=== PATIENT | female | born 1975 | race Hispanic/Latino ===

== ENCOUNTER 2021-11-30 14:08 | Emergency (ER) | payer OTHER ==
[2021-11-30] MEDS ORDERED: IBUPROFEN 400 MG TAB ONE (14:29)
[2021-11-30] MEDS ORDERED: HYDROCODONE/APAP 7.5/325 MG TAB ONE (14:30)
[2021-11-30] MEDS ORDERED: LIDOCAINE 1% MPF 5 ML VIAL ONE (15:50)
[2021-11-30] MEDS ORDERED: BUPIVACAINE 0.5% PF 10 ML VIAL ONE (15:50)
[2021-11-30] MEDS ORDERED: LIDOCAINE 1% W/EPI 1:100,000 MDV 20 ML VIAL ONE (15:52)
--- NOTE | 2021-11-30 16:14 | EDPHYS ---
Physician Documentation [facility] Name: Jessi Guzman Age: 45 yrs Sex: Female : 1975 Arrival Date: 11/30/2021 Time: 14:11 Bed DIS2 Private MD: ED Physician Naina Moser HPI: 11/30 14:19 This 45 yrs old Female presents to ER via Ambulatory with complaints of Hand cp Lac. 14:19 The patient or guardian reports a laceration. cp 14:19 The complaints affect the hyperthenar eminence of left hand. cp 14:19 Context: resulted from using supervisor mattress and boxsprings to clean boots. Onset: The symptoms/episode cp began/occurred just prior to arrival. Associated signs and symptoms: Pertinent negatives: cyanosis distally, decreased sensation distally. Historical: - Allergies: 14:17 No Known Allergies; ss - Home Meds: 14:17 None [Active]; ss - PMHx: 14:17 None; ss - Immunization history:: Last tetanus immunization: up to date. - Social history:: Smoking status: Patient denies any tobacco usage or history of. ROS: 14:25 Skin: Positive for laceration(s), of the hyperthenar eminence of left hand. cp 14:25 Constitutional: Negative for body aches, chills, fever. cp 14:25 Neck: Negative for pain with movement, pain at rest, stiffness. 14:25 Cardiovascular: Negative for chest pain, palpitations. 14:25 Respiratory: Negative for cough, shortness of breath, wheezing. 14:25 Abdomen/GI: Negative for abdominal pain, nausea, vomiting, and diarrhea. 14:25 Back: Negative for pain at rest, pain with movement. 14:25 Neuro: Negative for numbness. 14:25 All other systems are negative. Exam: 14:30 Constitutional: The patient appears in no acute distress, alert, awake, non-toxic, well cp developed, well nourished. 14:30 Musculoskeletal/extremity: Extremities: grossly normal except: noted in the hyperthenar cp eminence of left hand: laceration, tenderness, mild swelling, minimal bleeding, ROM: limited active range of motion due to pain, in the left hand, Perfusion: the extremity is normally perfused throughout, the left hand Sensation intact. Vital Signs: 14:15 BP 125 / 96; Pulse 84; Resp 24; Temp 98.0(TE); Pulse Ox 100% on R/A; Weight 79.83 kg; ss Height 5 ft. 2 in. (157.48 cm); Pain 10/10; 14:15 Body Mass Index 32.19 (79.83 kg, 157.48 cm) ss Laceration: 16:10 Wound Repair of 3cm ( 1.2in ) subcutaneous laceration to hyperthenar eminence of left cp hand. Linear shaped.. Distal neuro/vascular/tendon intact. Anesthesia: Wound infiltrated with 3 mls of Lido/Marcaine. Wound prep: Moderate cleansing by me, Wound irrigation by me. Skin closed with 3 4-0 Prolene using interrupted sutures and sterile technique. Dressed with 4x4's. Patient tolerated well. MDM: 14:30 Differential diagnosis: open fracture, simple laceration, tendon injury, foreign body. cp 15:43 Patient medically screened. cp 16:12 Data reviewed: vital signs, nurses notes, radiologic studies, plain films. Test cp interpretation: by ED physician or midlevel provider: xrays of right hand negative for fracture and/or foreign body. Counseling: I had a detailed discussion with the patient and/or guardian regarding: the historical points, exam findings, and any diagnostic results supporting the discharge/admit diagnosis, radiology results, the need for outpatient follow up, a family practitioner, to return to the emergency department if symptoms worsen or persist or if there are any questions or concerns that arise at home. Response to treatment: the patient's symptoms have markedly improved after treatment, and as a result, I will discharge patient. 11/30 14:18 Order name: XRAY Hand LEFT 3 View cp 11/30 15:45 Order name: Dressing - Wound; Complete Time: 16:18 cp 11/30 15:45 Order name: Gloves, Sterile; Complete Time: 16:16 cp 11/30 15:45 Order name: Setup Suture Tray; Complete Time: 16:18 cp 11/30 16:11 Order name: Wrist Splint: right; Complete Time: 16:38 cp 11/30 16:11 Order name: Wound dressing; Complete Time: 16:38 cp Administered Medications: 14:26 Drug: Hydrocodone-Acetaminophen (7.5 mg-325 mg) 1 tabs Route: PO; 16:18 Follow up: Response: No adverse reaction 14:26 Drug: Ibuprofen 800 mg Route: PO; 16:18 Follow up: Response: No adverse reaction 16:00 Drug: Bupivacaine (0.5 %) 5 ml {Note: administered by PA. Juan} Volume: 10 ml; Route: ss Infiltration; 16:00 Drug: Lidocaine-Epinephrine -1%: (1:100,000) 5 ml {Note: Administered by abhi Combs} Volume: 20 ml; Route: Infiltration; Disposition Summary: 11/30/21 16:13 Discharge Ordered Location: Home cp Problem: new cp Symptoms: have improved cp Condition: Stable cp Diagnosis - Laceration without foreign body of left hand, initial encounter cp Followup: cp - With: Private Physician - When: 10 - 14 days - Reason: Staple/Suture removal Discharge Instructions: - Discharge Summary Sheet cp - Laceration Care, Adult cp Forms: - Medication Reconciliation Form cp - Thank You Letter cp - Work release form ss - Antibiotic Education cp - Prescription Opioid Use cp Prescriptions: - Naprosyn 500 mg Oral Tablet - take 1 tablet by ORAL route 2 times per day take with food; 20 tablet; Refills: cp 0, Product Selection Permitted Signatures: Dispatcher [employer] Oumou Uribe RN RN ss Page, Corey, PA PA cp Corrections: (The following items were deleted from the chart) 16:45 16:13 Laceration without foreign body of right hand, initial encounter cp cp 12/01 13:55 11/30 14:19 The patient or guardian reports a laceration, clean, cp cp
--- NOTE | 2021-11-30 16:14 | ER ---
Nurse's Notes [facility] Name: Jessi Guzman Age: 45 yrs Sex: Female : 1975 Arrival Date: 11/30/2021 Time: 14:11 Bed DIS2 Private MD: Diagnosis: Laceration without foreign body of left hand, initial encounter Presentation: 11/30 14:15 Chief complaint: Patient states: "I was cleaning my boots with a box spring upholsterer and I cut ss my hand. I don't know if the blade is still in there or not." No active bleeding noted. approximate 0.5- 1 inch laceration noted to L palm of hand. Coronavirus screen: Client denies travel out of the [place] in the last 14 days. Ebola Screen: Patient denies exposure to infectious person. Patient denies travel to an Ebola-affected area in the 21 days before illness onset. Initial Sepsis Screen: Does the patient meet any 2 criteria? No. Patient's initial sepsis screen is negative. Does the patient have a suspected source of infection? No. Patient's initial sepsis screen is negative. Risk Assessment: Do you want to hurt yourself or someone else? Patient reports no desire to harm self or others. Onset of symptoms was November 30, 2021. 14:15 Method Of Arrival: Ambulatory ss 14:15 Acuity: PHAM 4 ss Historical: - Allergies: 14:17 No Known Allergies; ss - Home Meds: 14:17 None [Active]; ss - PMHx: 14:17 None; ss - Immunization history:: Last tetanus immunization: up to date. - Social history:: Smoking status: Patient denies any tobacco usage or history of. Screenin:21 Abuse screen: Denies threats or abuse. Denies injuries from another. Nutritional ss screening: No deficits noted. Tuberculosis screening: Never had TB. Fall Risk None identified. Assessment: 14:21 Reassessment: wet to dry dressing placed on L hand. Vital Signs: 14:15 BP 125 / 96; Pulse 84; Resp 24; Temp 98.0(TE); Pulse Ox 100% on R/A; Weight 79.83 kg; ss Height 5 ft. 2 in. (157.48 cm); Pain 10/10; 14:15 Body Mass Index 32.19 (79.83 kg, 157.48 cm) ED Course: 14:11 Patient arrived in ED. ds1 14:15 Juan Snyder PA is PHCP. cp 14:15 Naina Moser MD is Attending Physician. cp 14:17 Triage completed. ss 14:17 Arm band placed on right wrist. ss 14:21 Patient has correct armband on for positive identification. ss 16:14 XRAY Hand LEFT 3 View In Process Unspecified. EDMS 16:38 Oumou Roque, MANNY is Primary Nurse. ss 16:42 Assist provider with laceration repair on left hand that was 2.5 cm. or less using sutures. Set up tray. Performed by Juan STOKES Dressed with 4X4s, Anahi, Neosporin, Patient tolerated well. Patient did not have IV access during this emergency room visit. 16:48 Velcro wrist splint applied to left wrist. ss Administered Medications: 14:26 Drug: Hydrocodone-Acetaminophen (7.5 mg-325 mg) 1 tabs Route: PO; ss 16:18 Follow up: Response: No adverse reaction ss 14:26 Drug: Ibuprofen 800 mg Route: PO; ss 16:18 Follow up: Response: No adverse reaction ss 16:00 Drug: Bupivacaine (0.5 %) 5 ml {Note: administered by PA. Juan} Volume: 10 ml; Route: ss Infiltration; 16:00 Drug: Lidocaine-Epinephrine -1%: (1:100,000) 5 ml {Note: Administered by abhi Combs.} Volume: 20 ml; Route: Infiltration; Outcome: 16:13 Discharge ordered by MD. cp 16:42 Discharged to home ambulatory, with family. ss 16:42 Condition: good 16:42 Instructed on discharge instructions, follow up and referral plans. Demonstrated understanding of instructions, follow-up care, medications, Prescriptions given X 1. 16:48 Patient left the ED. Signatures: Dispatcher [employer] [facility] GaleanaSchumacheri ds1 Oumou Roque RN RN Juan Miller PA PA cp
[2021-11-30 16:53] VITALS: BP 125/96; TEMP 98; O2SAT 100
--- NOTE | 2021-11-30 16:53 | RAD REPORT ---
EXAM DESCRIPTION: RAD - Hand Left 3 View - 11/30/2021 4:12 pm CLINICAL HISTORY: PAIN, laceration, possible foreign body COMPARISON: None. FINDINGS: No fracture, dislocation or periosteal reaction noted. No bone or joint abnormality. Nelson ging is in place. No soft tissue foreign body. IMPRESSION: No foreign body. No acute bone finding.
== END 2021-11-30 16:48 | disposition home or self-care (01) ==
LOC: ER 14:08
PROC: 0JQK0ZZ Repair Left Hand Subcutaneous Tissue and Fascia, Open Approach (ICD-10-PCS; principal; 2021-11-30)
DX: S61.412A Laceration without foreign body of left hand, initial encounter (principal); W27.8XXA Contact with other nonpowered hand tool, initial encounter
CPT/HCPCS: 99284

== ENCOUNTER 2021-12-15 15:03 | Emergency (ER) | payer OTHER ==
--- NOTE | 2021-12-15 15:24 | EDPHYS ---
Physician Documentation [facility] Name: Jessi Guzman Age: 46 yrs Sex: Female : 1975 Arrival Date: 12/15/2021 Time: 15:04 Bed Waiting Private MD: Juan Vernon HPI: 12/15 15:20 This 46 yrs old Female presents to ER via Ambulatory with complaints of Suture taz Removal. 15:20 The patient has sutures on the left hand. Previous treatment: The patient was initially taz treated 15 day(s) ago. Sutures/miladys progress: The patient has no c/o's. The wound is well-healing with no redness, swelling, discharge, or dehiscence reported. The patient has not experienced similar symptoms in the past. Historical: - Allergies: 15:13 No Known Allergies; ss - Immunization history:: Adult Immunizations up to date. - Social history:: Smoking status: Patient denies any tobacco usage or history of. - Family history:: not pertinent. ROS: 15:20 Constitutional: Negative for fever, chills, and weight loss, Eyes: Negative for injury, taz pain, redness, and discharge, ENT: Negative for injury, pain, and discharge, Neck: Negative for injury, pain, and swelling, Cardiovascular: Negative for chest pain, palpitations, and edema, Respiratory: Negative for shortness of breath, cough, wheezing, and pleuritic chest pain, Abdomen/GI: Negative for abdominal pain, nausea, vomiting, diarrhea, and constipation, Back: Negative for injury and pain, : Negative for injury, bleeding, discharge, and swelling, Skin: Negative for injury, rash, and discoloration, Neuro: Negative for headache, weakness, numbness, tingling, and seizure, Psych: Negative for depression, anxiety, suicide ideation, homicidal ideation, and hallucinations, Allergy/Immunology: Negative for hives, rash, and allergies, Endocrine: Negative for neck swelling, polydipsia, polyuria, polyphagia, and marked weight changes, Hematologic/Lymphatic: Negative for swollen nodes, abnormal bleeding, and unusual bruising. 15:20 MS/extremity: Positive for pain, of the left hand. Exam: 15:20 Constitutional: This is a well developed, well nourished patient who is awake, alert, taz and in no acute distress. Head/Face: Normocephalic, atraumatic. Eyes: Pupils equal round and reactive to light, extra-ocular motions intact. Lids and lashes normal. Conjunctiva and sclera are non-icteric and not injected. Cornea within normal limits. Periorbital areas with no swelling, redness, or edema. ENT: Nares patent. No nasal discharge, no septal abnormalities noted. Tympanic membranes are normal and external auditory canals are clear. Oropharynx with no redness, swelling, or masses, exudates, or evidence of obstruction, uvula midline. Mucous membranes moist. Neck: Trachea midline, no thyromegaly or masses palpated, and no cervical lymphadenopathy. Supple, full range of motion without nuchal rigidity, or vertebral point tenderness. No Meningismus. Chest/axilla: Normal chest wall appearance and motion. Nontender with no deformity. No lesions are appreciated. Cardiovascular: Regular rate and rhythm with a normal S1 and S2. No gallops, murmurs, or rubs. Normal PMI, no JVD. No pulse deficits. Respiratory: Lungs have equal breath sounds bilaterally, clear to auscultation and percussion. No rales, rhonchi or wheezes noted. No increased work of breathing, no retractions or nasal flaring. Abdomen/GI: Soft, non-tender, with normal bowel sounds. No distension or tympany. No guarding or rebound. No evidence of tenderness throughout. Back: No spinal tenderness. No costovertebral tenderness. Full range of motion. Skin: Warm, dry with normal turgor. Normal color with no rashes, no lesions, and no evidence of cellulitis. Neuro: Awake and alert, GCS 15, oriented to person, place, time, and situation. Cranial nerves II-XII grossly intact. Motor strength 5/5 in all extremities. Sensory grossly intact. Cerebellar exam normal. Normal gait. Psych: Awake, alert, with orientation to person, place and time. Behavior, mood, and affect are within normal limits. 15:20 Musculoskeletal/extremity: Circulation is intact in all extremities. Sensation intact. Compartment Syndrome exam of affected extremity: is normal. Vital Signs: 15:32 BP 139 / 78; Pulse 81; Resp 18; Temp 98.0; Pulse Ox 99% on R/A; ph Procedures: 15:20 Suture/Staple removal: Removed 3 sutures, from left hand, site appears well healed, taz dressed with band aid, Neosporin, Patient tolerated well. MDM: 15:09 Patient medically screened. [facility] 15:20 Data reviewed: vital signs, nurses notes. [facility] Administered Medications: No medications were administered Disposition Summary: 12/15/21 15:23 Discharge Ordered Location: Home [facility] Problem: new taz Symptoms: have improved taz Condition: Stable taz Diagnosis - Encounter for removal of sutures taz Followup: taz - With: Private Physician - When: 2 - 3 days - Reason: Recheck today's complaints, Continuance of care, Re-evaluation by your physician Discharge Instructions: - Suture Removal, Care After taz - Discharge Summary Sheet ss Forms: - Medication Reconciliation Form taz - Thank You Letter taz - Antibiotic Education [facility] - Work release form ss - Prescription Opioid Use [facility] Signatures: Juan Guaman MD MD cha Smirch, Shelby, RN RN ss
--- NOTE | 2021-12-15 15:24 | ER ---
Nurse's Notes [facility] Name: Jessi Guzman Age: 46 yrs Sex: Female : 1975 Arrival Date: 12/15/2021 Time: 15:04 Bed Waiting Private MD: Diagnosis: Encounter for removal of sutures Presentation: 12/15 15:11 Chief complaint: Patient states: Sutures to R palm, accidentally stabbed herself while ss working on boots. Suture site healthy in appearance, approx 3 sutures noted. Coronavirus screen: Vaccine status: Patient reports being unvaccinated. Ebola Screen: No symptoms or risks identified at this time. Initial Sepsis Screen: Does the patient meet any 2 criteria? No. Patient's initial sepsis screen is negative. Does the patient have a suspected source of infection? No. Patient's initial sepsis screen is negative. Risk Assessment: Do you want to hurt yourself or someone else? Patient reports no desire to harm self or others. 15:11 Method Of Arrival: Ambulatory ss 15:11 Acuity: PHAM 5 ss 15:32 Onset of symptoms was December 15, 2021. ph Triage Assessment: 15:31 General: Appears in no apparent distress. Behavior is calm, cooperative, appropriate ph for age, Denies fever. Pain: Complains of pain in left hand. Historical: - Allergies: 15:13 No Known Allergies; ss - Immunization history:: Adult Immunizations up to date. - Social history:: Smoking status: Patient denies any tobacco usage or history of. - Family history:: not pertinent. Screenin:31 Abuse screen: Denies threats or abuse. Denies injuries from another. Nutritional ph screening: No deficits noted. Tuberculosis screening: No symptoms or risk factors identified. Fall Risk None identified. Assessment: 15:31 Reassessment: ERP in triage to remove sutures. ph Vital Signs: 15:32 BP 139 / 78; Pulse 81; Resp 18; Temp 98.0; Pulse Ox 99% on R/A; ph ED Course: 15:04 Patient arrived in ED. am2 15:09 Juan Guaman MD is Attending Physician. taz 15:13 Triage completed. ss 15:18 Arm band placed on. ss 15:32 Patient has correct armband on for positive identification. ph 15:32 No provider procedures requiring assistance completed. Patient did not have IV access ph during this emergency room visit. Administered Medications: No medications were administered Medication: 15:32 VIS not applicable for this client. ph Outcome: 15:23 Discharge ordered by . taz 15:32 Discharged to home ambulatory. ph 15:32 Condition: good 15:32 Discharge instructions given to patient, Instructed on discharge instructions, follow up and referral plans. Demonstrated understanding of instructions, follow-up care. 15:32 Patient left the ED. ph Signatures: Juan Guaman MD MD cha Smirch, Shelby, RN RN Johanna Daley RN RN Vicky Shukla
[2021-12-15 15:40] VITALS: BP 139/78; TEMP 98; O2SAT 99
== END 2021-12-15 15:32 | disposition home or self-care (01) ==
LOC: ER 15:03
DX: Z48.02 Encounter for removal of sutures (principal)
CPT/HCPCS: 99281

== ENCOUNTER 2021-12-26 13:15 | Emergency (ER) | payer OTHER ==
[2021-12-26 14:17] LABS: Absolute Lymphocytes (CBC) 1.6 K/uL (0.7-4.9); Hematocrit 37.8 % (36.0-45.0); Lymphocytes % 29.9 % (15.3-44.8); MPV 8.6 fL (7.6-11.3); RBC Red Blood Cell Count 4.48 M/uL (3.86-4.86)
[2021-12-26 14:34] LABS: Potassium 3.7 mmol/L (3.5-5.1); Troponin High Sensitivity 3.9 pg/mL (<58.9)
--- NOTE | 2021-12-26 14:34 | RAD REPORT ---
EXAM DESCRIPTION: RAD - Chest Single View - 12/26/2021 2:10 pm CLINICAL HISTORY: PALPITATIONS COMPARISON: No comparisons FINDINGS: Lines: None. Lungs: No evidence of edema or pneumonia. Pleural: No significant pleural effusions or pneumothorax. Cardiac: The heart size is within normal limits. Bones: No acute fractures. Other: IMPRESSION: No acute cardiopulmonary disease.
--- NOTE | 2021-12-26 14:42 | EDPHYS ---
Physician Documentation [facility] Name: Jessi Guzman Age: 46 yrs Sex: Female : 1975 Arrival Date: 12/26/2021 Time: 13:17 Bed 5 Private MD: ED Physician Ruben Winter HPI: 12/26 14:48 This 46 yrs old Female presents to ER via Ambulatory with complaints of ms3 Palpitations, Dizziness. 14:48 The patient presents with a history of "Strong beat". Context: The symptoms occur at ms3 rest. Onset: The symptoms/episode began/occurred this morning. Duration: The patient or guardian reports a single episode. Duration: The patient or guardian reports a single episode. Modifying factors: The symptoms are aggravated by nothing. The symptoms are alleviated by nothing. Associated signs and symptoms: The patient has no apparent associated signs or symptoms, Pertinent positives: sore throat, ear pain, Pertinent negatives: fever. Severity of symptoms: At their worst the symptoms were moderate in the emergency department the symptoms are unchanged. 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 - Social history:: Smoking status: Patient denies any tobacco usage or history of. ROS: 14:48 Constitutional: Negative for fever, and chills. ENT: sore throat, ear pain Neck: ms3 Negative for injury, pain, and swelling, Cardiovascular: Palpitations Respiratory: Negative for shortness of breath, cough, wheezing, and pleuritic chest pain, Abdomen/GI: Negative for abdominal pain, nausea, vomiting, diarrhea, and constipation. 14:48 All other systems are negative. Exam: 13:32 Constitutional: This is a well developed, well nourished patient who is awake, alert, ms3 and in no acute distress. Head/Face: Normocephalic, atraumatic. Neck: Trachea midline, no cervical lymphadenopathy. Supple, full range of motion without nuchal rigidity, or vertebral point tenderness. No Meningismus. Chest/axilla: Normal chest wall appearance and motion. Nontender with no deformity. Cardiovascular: Regular rate and rhythm with a normal S1 and S2. No gallops, murmurs, or rubs. Normal PMI, no JVD. No pulse deficits. Respiratory: Lungs have equal breath sounds bilaterally, clear to auscultation and percussion. No rales, rhonchi or wheezes noted. No increased work of breathing, no retractions or nasal flaring. Abdomen/GI: Soft, non-tender, with normal bowel sounds. No distension or tympany. No guarding or rebound. No evidence of tenderness throughout. Skin: Warm, dry with normal turgor. Normal color with no rashes, no lesions, and no evidence of cellulitis. MS/ Extremity: Pulses equal, no cyanosis. Neurovascular intact. Full, normal range of motion. Psych: Awake, alert, with orientation to person, place and time. Behavior, mood, and affect are within normal limits. 13:32 ECG was reviewed by the Attending Physician. 14:48 ENT: External ear(s): are unremarkable, Ear canal(s): are normal, TM's: are normal, ms3 Mouth: right posterior pharynx with ulcerations. Vital Signs: 13:22 BP 119 / 90; Pulse 85; Resp 16; Pulse Ox 99% on R/A; iw 14:30 BP 126 / 73; Pulse 68; Resp 15; Pulse Ox 98% on R/A; jl7 MDM: 13:52 Patient medically screened. ms3 14:48 Differential diagnosis: arrythmia, Viral illness. Data reviewed: vital signs, nurses ms3 notes, lab test result(s), EKG, radiologic studies. Data interpreted: engine monitor: rate is 85 beats/min, rhythm is normal sinus rhythm, regular, with no ectopy, Interpretation: normal rate, normal rhythm. Counseling: I had a detailed discussion with the patient and/or guardian regarding: the historical points, exam findings, and any diagnostic results supporting the discharge/admit diagnosis, lab results, radiology results, the need for outpatient follow up, to return to the emergency department if symptoms worsen or persist or if there are any questions or concerns that arise at home. ED course: Discussed labs, EKG, chest x-ray, physical exam findings with patient. Patient to follow-up with her primary care physician in 2 to [address] Hdz. Patient understands and agrees with plan. All questions were answered. Return precautions discussed include worsening symptoms, or any other concerns. On reevaluation patient is alert and oriented x4, in no apparent distress, nontoxic, ambulatory in the emergency department, speaking full sentences.. 12/26 13:56 Order name: Basic Metabolic Panel; Complete Time: 14:38 ms3 12/26 13:56 Order name: CBC with Diff; Complete Time: 14:38 ms3 12/26 13:56 Order name: Troponin HS; Complete Time: 14:38 ms3 12/26 13:56 Order name: XRAY Chest (1 view); Complete Time: 14:38 ms3 12/26 13:56 Order name: EKG; Complete Time: 13:56 ms3 12/26 13:56 Order name: Cardiac monitoring; Complete Time: 14:44 ms3 12/26 13:56 Order name: EKG - Nurse/Tech; Complete Time: 14:44 ms3 12/26 13:56 Order name: IV Saline Lock; Complete Time: 14:44 ms3 12/26 13:56 Order name: Labs collected and sent; Complete Time: 14:44 ms3 12/26 13:56 Order name: O2 Per Protocol; Complete Time: 14:44 ms3 12/26 13:56 Order name: O2 Sat Monitoring; Complete Time: 14:44 ms3 EC:32 Rate is 76 beats/min. Rhythm is regular. QRS [place] is Normal. QRS interval is normal. ms3 Clinical impression: NSR w/ Non-specific ST/T Changes. Interpreted by me. Administered Medications: No medications were administered Disposition Summary: 12/26/21 14:41 Discharge Ordered Location: Home ms3 Condition: Stable ms3 Diagnosis - Palpitations ms3 - Viral illness ms3 - Pain in throat ms3 Followup: ms3 - With: Demetrius Hdz MD - When: 2 - 3 days - Reason: Re-evaluation by your physician Discharge Instructions: - Discharge Summary Sheet ms3 - Palpitations ms3 - Sore Throat ms3 - Palpitations, [id number] ms3 Forms: - Medication Reconciliation Form ms3 - Thank You Letter ms3 - Antibiotic Education ms3 - Prescription Opioid Use ms3 Signatures: Dispatcher [employer] Fiona Clemente RN RN Brennan Swanus, DO ms3 Corrections: (The following items were deleted from the chart) 13:25 13:24 PMHx: None; [facility] 14:51 13:32 Constitutional: This is a well developed, well nourished patient who is awake, ms3 alert, and in no acute distress. Head/Face: Normocephalic, atraumatic. Neck: Trachea midline, no cervical lymphadenopathy. Supple, full range of motion without nuchal rigidity, or vertebral point tenderness. No Meningismus. Chest/axilla: Normal chest wall appearance and motion. Nontender with no deformity. Cardiovascular: Regular rate and rhythm with a normal S1 and S2. No gallops, murmurs, or rubs. Normal PMI, no JVD. No pulse deficits. Respiratory: Lungs have equal breath sounds bilaterally, clear to auscultation and percussion. No rales, rhonchi or wheezes noted. No increased work of breathing, no retractions or nasal flaring. Abdomen/GI: Soft, non-tender, with normal bowel sounds. No distension or tympany. No guarding or rebound. No evidence of tenderness throughout. Skin: Warm, dry with normal turgor. Normal color with no rashes, no lesions, and no evidence of cellulitis. MS/ Extremity: Pulses equal, no cyanosis. Neurovascular intact. Full, normal range of motion. Psych: Awake, alert, with orientation to person, place and time. Behavior, mood, and affect are within normal limits. ms3
--- NOTE | 2021-12-26 14:42 | ER ---
Nurse's Notes [facility] Name: Jessi Guzman Age: 46 yrs Sex: Female : 1975 Arrival Date: 12/26/2021 Time: 13:17 Bed 5 Private MD: Diagnosis: Palpitations;Viral illness;Pain in throat Presentation: 12/26 13:22 Chief complaint: Patient states: feels light headed and everything is moving, and feels iw like needles in her throat and pain in right ear , since yesterday, dizziness started today. Coronavirus screen: At this time, the client does not indicate any symptoms associated with coronavirus-19. Ebola Screen: Patient negative for fever greater than or equal to 101.5 degrees Fahrenheit, and additional compatible Ebola Virus Disease symptoms Patient denies exposure to infectious person. Patient denies travel to an Ebola-affected area in the 21 days before illness onset. No symptoms or risks identified at this time. Initial Sepsis Screen: Does the patient meet any 2 criteria? No. Patient's initial sepsis screen is negative. Does the patient have a suspected source of infection? No. Patient's initial sepsis screen is negative. Risk Assessment: Do you want to hurt yourself or someone else? Patient reports no desire to harm self or others. Onset of symptoms was December 26, 2021. 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 - Social history:: Smoking status: Patient denies any tobacco usage or history of. Screenin:43 Abuse screen: Denies threats or abuse. Nutritional screening: No deficits noted. 6 Tuberculosis screening: No symptoms or risk factors identified. Fall Risk None identified. Assessment: 13:39 General: Appears in no apparent distress. Behavior is calm, cooperative. Pain: 6 Complains of pain in right ear and neck Pain currently is 4 out of 10 on a pain scale. Quality of pain is described as aching, sharp, Pain began 2-3 days ago. Neuro: Level of Consciousness is awake, alert, obeys commands, Oriented to person, place, time, Chemical Processor are equal bilaterally Moves all extremities. Full function Speech is normal, Facial symmetry appears normal, Pupils are PERRLA, Reports dizziness, since this am. Cardiovascular: Reports palpitations, Capillary refill < 3 seconds Rhythm is sinus rhythm. Respiratory: No deficits noted. Airway is patent Trachea midline Respiratory effort is even, unlabored, Respiratory pattern is regular, symmetrical. 14:30 Reassessment: Patient appears in no apparent distress at this time. No changes from jl7 previously documented assessment. Patient and/or family updated on plan of care and expected duration. Pain level reassessed. Patient is alert, oriented x 3, equal unlabored respirations, skin warm/dry/pink. Vital Signs: 13:22 BP 119 / 90; Pulse 85; Resp 16; Pulse Ox 99% on R/A; iw 14:30 BP 126 / 73; Pulse 68; Resp 15; Pulse Ox 98% on R/A; jl7 ED Course: 13:17 Patient arrived in ED. mr 13:20 Ruben Winter DO is Attending Physician. ms3 13:24 Triage completed. iw 13:25 Arm band placed on. iw 13:25 Placed in gown. Bed in low position. Call light in reach. Side rails up X 1. Adult w/ jh6 patient. 13:25 Client placed on continuous cardiac and pulse oximetry monitoring. NIBP monitoring 6 applied. cafeteria monitor on. Pulse ox on. NIBP on. 13:39 Rebecca Magana, MANNY is Primary Nurse. [facility] 13:43 Initial lab(s) drawn, by nd, sent to lab. EKG done. Inserted saline lock: 20 gauge in 6 left antecubital area, using aseptic technique. Blood collected. 14:12 XRAY Chest (1 view) In Process Unspecified. EDMS 14:41 Demetrius Hdz MD is Referral Physician. ms3 15:07 No provider procedures requiring assistance completed. IV discontinued, intact, jl7 bleeding controlled, No redness/swelling at site. Pressure dressing applied. Administered Medications: No medications were administered Medication: 15:07 VIS not applicable for this client. jl7 Outcome: 14:41 Discharge ordered by . ms3 15:07 Discharged to home ambulatory, with family. jl7 15:07 Condition: stable 15:07 Discharge instructions given to patient, family, Instructed on discharge instructions, follow up and referral plans. Demonstrated understanding of instructions, follow-up care. 15:11 Patient left the ED. jl7 Signatures: Dispatcher [employer] EDIA Marysol QuispeFiona, RN MANNY iw Dheeraj Mckinley RN RN jl7 Ruben Winter DO DO ms3 Rebecca Magana RN RN jh6 Corrections: (The following items were deleted from the chart) 13:25 13:24 PMHx: None; tessa zarate
[2021-12-26 15:49] VITALS: BP 126/73; O2SAT 98
--- NOTE | 2021-12-28 08:58 | EKG ---
Test Date: 2021-12-26 Test Time: 13:32:24 Athletic Monitor: YANA MEASUREMENT RESULTS: Intervals: Rate: 76 NM: 136 QRSD: 70 QT: 350 QTc: 393 [place]: P: 7 NM: 136 QRS: 74 T: 45 INTERPRETIVE STATEMENTS: Normal sinus rhythm Cannot rule out Anterior infarct, age undetermined Abnormal ECG No previous ECG available for comparison Electronically Signed On 12-28-21 08:55:37 CDT by Kole Chanel
== END 2021-12-26 15:11 | disposition home or self-care (01) ==
LOC: ER 13:15
DX: B34.9 Viral infection, unspecified (principal); R00.2 Palpitations; I34.1 Nonrheumatic mitral (valve) prolapse
CPT/HCPCS: 36415; 71045; 80048; 84484; 85025; 93005; 99284